=== PATIENT | male | born 1940 ===

== ENCOUNTER 2025-05-25 06:06 | Day surgery (SDC) | payer MEDICARE, SELFPAY ==
--- NOTE | 2025-05-11 14:36 | CM ---
Demographics: confirmed
Living situation:lives with
Support Person Post Operatively:
History of
VN: yes, [employer] , not currently on service
SNF: Patient stated he stayed in the hospital for 10 days
Outpatient: NA
Has patient purchased required equipment: sling
PCP: Patient wasn't sure
Pharmacy: [facility]
Post Operative Discharge Plan: Home with .
[2025-05-19 11:43] VITALS: BMI 28.5
[2025-05-19 12:30] LABS: Hematocrit 41.7 % (39.0-52.0); Hemoglobin 14.4 g/dL (13.0-18.0); Mean Corp Hgb Conc. 34.5 g/dL (33.0-37.0); Mean Corpuscular Volume 88.5 fL (80.0-94.0); Platelet Count 243 10^3/uL (130-400); Red Cell Dist. Width 11.8 % (11.5-14.5)
[2025-05-19 13:02] VITALS: BMI 28.5
[2025-05-19 13:42] LABS: ALT (SGPT) 32 U/L (0-50); AST (SGOT) 41 U/L (17-59); Albumin 4.3 g/dl (3.5-5.0); Alkaline Phosphatase 80 U/L (38-126); Blood Urea Nitrogen 24 mg/dl (9-20); Calcium 9.4 mg/dl (8.4-10.2); Carbon Dioxide 31 mmol/L (22-30); Chloride 104 mmol/L (98-107); Estimated Creatinine Clearance 52 ml/min; Glucose 80 mg/dl (70-99); Potassium 4.9 mmol/L (3.5-5.1); Sodium 139 mmol/L (135-145); Total Protein 7.1 g/dl (6.3-8.2); eGFR > 60.00
[2025-05-20 06:41] LABS: Glycohemoglobin (HgbA1c) 5.2 % (4.0-5.6)
[2025-05-25] VITALS (10 sets, daily range): BP systolic 130–144; BP diastolic 73–109; BMI 28.5
[2025-05-25] MEDS: NORMOSOL-R/PLASMALYTE-A 1000 IV (07:00)
[2025-05-25] MEDS: CELEBREX 200 MG PO (07:14)
[2025-05-25] MEDS: TYLENOL 1000 MG PO (07:14)
[2025-05-25] MEDS: BACTROBAN NASAL 1 GRAM NASAL (07:15)
[2025-05-25] MEDS: ANCEF 5 IV (12:00)
== END 2025-05-25 12:20 | disposition home or self-care (01) ==
LOC: SDS 06:06
PROVIDERS: ATTENDING PHYSICIAN Orthopaedic Surgery Hand Surgery; FAMILY PHYSICIAN Family Medicine; OTHER PHYSICIAN Internal Medicine Cardiovascular Disease; OTHER PHYSICIAN Physician Assistant Medical
DX: M19.011 Primary osteoarthritis, right shoulder (principal); M75.121 Complete rotator cuff tear or rupture of right shoulder, not specified as traumatic
CPT/HCPCS: 23472; 36415; 73020; 80053; 83036; 85027; 87070; C1713; C1776